=== PATIENT | female | born 1960 | race Caucasian/White ===

== ENCOUNTER 2022-09-29 07:10 | Inpatient (IN) | payer MEDICAID ==
[2022-09-29] MEDS ORDERED: ceFAZolin 2 GM in Sodium Chloride 0.9% 50 ML IV ONE (08:30)
[2022-09-29] MEDS ORDERED: Nozin Nasal Sanitizer NASBOTH SCH (08:30)
[2022-09-29] MEDS ORDERED: Lactated Ringers 1,000 ML IV SCH (08:30)
[2022-09-29] MEDS ORDERED: Nozin Nasal Sanitizer NASBOTH ONE (08:30)
[2022-09-29] MEDS ORDERED: Midazolam 1 MG/ML 2 ML SDV ONE (08:54)
[2022-09-29] MEDS ORDERED: Propofol 200 MG/20 ML SDV ONE ×2 (08:54→11:29)
[2022-09-29] MEDS ORDERED: fentaNYL 100 MCG/2 ML SDV ONE (08:54)
[2022-09-29] MEDS ORDERED: Bupivacaine 0.5% 30 ML SDV ONE (10:05)
[2022-09-29] MEDS ORDERED: Lactated Ringers 1,000 ML ONE (11:14)
[2022-09-29] MEDS ORDERED: Morphine 2 MG/ML SYRINGE IVPUSH PRN (12:19)
[2022-09-29] MEDS ORDERED: Ondansetron 4 MG Tab.DIS PO PRN (12:19)
[2022-09-29] MEDS ORDERED: Magnesium Hydroxide 400 MG/5 ML Susp 30 ML Cup PO PRN (12:19)
[2022-09-29] MEDS ORDERED: traMADol 50 MG Tab PO PRN (12:19)
[2022-09-29] MEDS ORDERED: Albuterol 0.083% 2.5 MG/3 ML Neb Soln INH PRN (12:28)
[2022-09-29] MEDS: oxyCODONE 5 MG Tab PO PRN ×2 (13:16→17:30)
[2022-09-29] MEDS: Sodium Chloride 0.9% 1,000 ML IV SCH (13:17)
[2022-09-29] MEDS ORDERED: Acetaminophen 325 MG Tab PO SCH (14:00)
[2022-09-29] MEDS: Ketorolac 30 MG/ML SDV IVPUSH SCH ×2 (14:34→20:05)
[2022-09-29] MEDS ORDERED: Sodium Chloride 0.9% 1,000 ML IV ONE ×2 (14:48→14:50)
[2022-09-29] MEDS: ceFAZolin 1 GM in Premix Bag 1 BAG IV SCH (17:23)
[2022-09-29] MEDS: Aspirin 325 MG Tab.EC PO SCH (20:05)
[2022-09-29] MEDS: Nozin Nasal Sanitizer NASBOTH SCH (20:06)
[2022-09-29] MEDS: Fluticasone NASAL Spray 16 GM Bottle NASBOTH SCH (20:07)
[2022-09-29] MEDS: Albuterol 90 MCG/6.7 GM Inhaler INH SCH (20:08)
[2022-09-29] MEDS: Formoterol/Mometasone 100-5 MCG 8.8 GM Inhaler IH SCH (20:08)
[2022-09-29] MEDS: Acetaminophen 325 MG Tab PO SCH (23:21)
[2022-09-30] MEDS: Sodium Chloride 0.9% 1,000 ML IV SCH (00:27)
[2022-09-30] MEDS: Ketorolac 30 MG/ML SDV IVPUSH SCH ×2 (01:18→08:01)
[2022-09-30] MEDS: ceFAZolin 1 GM in Premix Bag 1 BAG IV SCH (01:18)
[2022-09-30] MEDS: Acetaminophen 325 MG Tab PO SCH ×4 (04:30→21:18)
[2022-09-30] MEDS: oxyCODONE 5 MG Tab PO PRN ×5 (07:30→23:42)
[2022-09-30] MEDS: Albuterol 90 MCG/6.7 GM Inhaler INH SCH ×2 (07:59→21:16)
[2022-09-30] MEDS: Formoterol/Mometasone 100-5 MCG 8.8 GM Inhaler IH SCH ×2 (07:59→21:15)
[2022-09-30] MEDS: Nozin Nasal Sanitizer NASBOTH SCH ×2 (08:01→21:14)
[2022-09-30] MEDS: Fluticasone NASAL Spray 16 GM Bottle NASBOTH SCH ×2 (08:02→21:17)
[2022-09-30] MEDS: Pravastatin 20 MG Tab PO SCH (08:03)
[2022-09-30] MEDS: Docusate Sodium 100 MG Cap PO SCH (08:03)
[2022-09-30] MEDS: Aspirin 325 MG Tab.EC PO SCH ×2 (08:04→21:18)
[2022-09-30] MEDS: PARoxetine 20 MG Tab PO SCH (08:04)
[2022-10-01] MEDS: Acetaminophen 325 MG Tab PO SCH ×2 (04:06→10:35)
[2022-10-01] MEDS: oxyCODONE 5 MG Tab PO PRN ×2 (04:07→08:14)
[2022-10-01] MEDS: Formoterol/Mometasone 100-5 MCG 8.8 GM Inhaler IH SCH (07:29)
[2022-10-01] MEDS: Albuterol 90 MCG/6.7 GM Inhaler INH SCH (07:29)
[2022-10-01] MEDS: Pravastatin 20 MG Tab PO SCH (08:14)
[2022-10-01] MEDS: Fluticasone NASAL Spray 16 GM Bottle NASBOTH SCH (08:14)
[2022-10-01] MEDS: Aspirin 325 MG Tab.EC PO SCH (08:14)
[2022-10-01] MEDS: Nozin Nasal Sanitizer NASBOTH SCH (08:14)
[2022-10-01] MEDS: Docusate Sodium 100 MG Cap PO SCH (08:14)
[2022-10-01] MEDS: PARoxetine 20 MG Tab PO SCH (08:15)
== END 2022-10-01 12:00 | disposition home or self-care (01) | DRG 470 ==
LOC: JP.SDS 07:10 → JP.MS 12:19 → JP.SDS 09-30 11:30 → JP.MS 09-30 11:30
PROVIDERS: ADMIT Specialist; ATTEND Specialist
PROC: 0SRB01A Replacement of Left Hip Joint with Metal Synthetic Substitute, Uncemented, Open Approach (ICD-10-PCS; principal; 2022-09-30)
DX: M16.12 Unilateral primary osteoarthritis, left hip (principal); F41.9 Anxiety disorder, unspecified; E78.00 Pure hypercholesterolemia, unspecified; J45.909 Unspecified asthma, uncomplicated; R00.1 Bradycardia, unspecified; I95.9 Hypotension, unspecified; Z20.822 Contact with and (suspected) exposure to COVID-19; Z90.710 Acquired absence of both cervix and uterus; Z90.49 Acquired absence of other specified parts of digestive tract; Z91.09 Other allergy status, other than to drugs and biological substances; Z79.51 Long term (current) use of inhaled steroids; Z79.899 Other long term (current) drug therapy; Z86.16 Personal history of COVID-19
CPT/HCPCS: 36415; 72170; 72170-26; 80048; 85027; 93005; 93010; 94640; 97110-GP; 97116-GP; 97161-GP; 97165-GO; 97530-GP; 97535-GO; 97535-GP; A9270-GY; C1713; C1776; J0690; J1885; J2250; J2704; J3010; J3490; J7030; J7120; U0002

== ENCOUNTER 2024-08-15 07:12 | Observation (INO) | payer MEDICAID ==
[~2024-08-15 07:12] MED LIST: Bupivacaine 0.5% 50 ML MDV ONE
[2024-08-15] MEDS ORDERED: fentaNYL 100 MCG/2 ML SDV ONE ×2 (07:25→09:35)
[2024-08-15] MEDS ORDERED: Propofol 200 MG/20 ML SDV ONE ×2 (07:25→10:00)
[2024-08-15] MEDS ORDERED: Midazolam 1 MG/ML 2 ML SDV ONE ×2 (07:26→09:35)
[2024-08-15 07:35] LABS: HEMATOCRIT 44.8 % (34.3-46.0); HEMOGLOBIN 14.6 g/dL (11.2-15.5); MEAN CORPUSCULAR HEMOGLOBIN 31.3 pg (31.6-35.5); MEAN CORPUSCULAR HGB CONC 32.6 g/dL (31.6-35.5); MEAN CORPUSCULAR VOLUME 95.9 fL (81.4-99.0); RED BLOOD CELL COUNT 4.67 M/uL (3.77-5.24); WHITE BLOOD CELL COUNT,WBC 8.5 K/uL (3.2-11.0)
[2024-08-15] MEDS: Nozin Nasal Sanitizer NASBOTH SCH ×2 (07:52→20:58)
[2024-08-15 07:57] LABS: ALANINE AMINOTRANSFERASE,ALT 24 U/L (12-78); ALBUMIN 3.6 g/dL (3.4-5.0); ALKALINE PHOSPHATASE 126 U/L (46-116); ANION GAP 7.8 mmol/L (5.0-14.0); ASPARTATE AMNIOTRANSFERASE,AST 20 U/L (15-37); BILIRUBIN TOTAL 0.4 mg/dL (0.2-1.0); BLOOD UREA NITROGEN,BUN 14 mg/dL (7-18); CALCIUM 9.4 mg/dL (8.5-10.1); CARBON DIOXIDE,CO2 29 mmol/L (21-32); CHLORIDE,CL 106 mmol/L (100-108); CREATININE 0.9 mg/dL (0.6-1.0); EST CRCL DRUG DOSING (CG) 51.92 mL/min; ESTIMATED GFR 73 mL/min (>60); GLUCOSE RANDOM 124 mg/dL (74-106); POTASSIUM,K 3.8 mmol/L (3.6-5.2); PROTEIN TOTAL,TP 7.4 g/dL (6.4-8.2); SODIUM,NA 143 mmol/L (140-148)
[2024-08-15] MEDS: Lactated Ringers 1,000 ML IV SCH (08:12)
[2024-08-15] MEDS: ceFAZolin 2 GM in Premix Bag 1 BAG IV ONE (09:15)
[2024-08-15] MEDS: Tranexamic Acid 840 MG in Sodium Chloride 0.9% 50 ML IV ONE (09:45)
[2024-08-15] MEDS ORDERED: Lactated Ringers 1,000 ML ONE (10:40)
[2024-08-15] MEDS ORDERED: Ondansetron 4 MG/2 ML SDV IVPUSH PRN (11:15)
[2024-08-15] MEDS ORDERED: Docusate Sodium 100 MG Cap PO PRN (11:15)
[2024-08-15] MEDS ORDERED: ceFAZolin 2 GM in Sodium Chloride 0.9% 50 ML IV SCH (11:15)
[2024-08-15] MEDS ORDERED: Albuterol 0.083% 2.5 MG/3 ML Neb Soln INH PRN (11:16)
[2024-08-15] MEDS ORDERED: Fluticasone NASAL Spray 16 GM Bottle NAS PRN (11:16)
[2024-08-15] MEDS: Morphine 2 MG/ML SYRINGE IVPUSH ONE (11:32)
[2024-08-15] MEDS: Sodium Chloride 0.9% 1,000 ML IV SCH (12:40)
[2024-08-15] MEDS: oxyCODONE 5 MG Tab PO PRN (12:41)
[2024-08-15] MEDS: Ketorolac 15 MG/ML SDV IVPUSH PRN (14:56)
[2024-08-15] MEDS: Acetaminophen 325 MG Tab PO SCH (15:28)
[2024-08-15] MEDS: ceFAZolin 2 GM in Premix Bag 1 BAG IV SCH (16:46)
[2024-08-15] MEDS ORDERED: Albuterol 6.7 GM Inhaler INH SCH (21:00)
[2024-08-15] MEDS: ADVAIR INH SCH (21:00)
[2024-08-15] MEDS: Pravastatin 20 MG Tab PO SCH (21:00)
[2024-08-15] MEDS ORDERED: Non-Formulary Medication 1 Each (Fluticasone/Salmeterol [Advair 100-50] 14 PUFF/DISKUS Dis INH SCH (21:00)
[2024-08-15] MEDS: ALBUTEROL INH SCH (21:01)
[2024-08-16 05:30] LABS: HEMATOCRIT 35.3 % (34.3-46.0); HEMOGLOBIN 11.5 g/dL (11.2-15.5); MEAN CORPUSCULAR HEMOGLOBIN 31.4 pg (31.6-35.5); MEAN CORPUSCULAR HGB CONC 32.6 g/dL (31.6-35.5); MEAN CORPUSCULAR VOLUME 96.4 fL (81.4-99.0); RED BLOOD CELL COUNT 3.66 M/uL (3.77-5.24); WHITE BLOOD CELL COUNT,WBC 9.9 K/uL (3.2-11.0)
[2024-08-16] MEDS: Aspirin 325 MG Tab.EC PO SCH (08:21)
[2024-08-16] MEDS: PARoxetine 20 MG Tab PO SCH (08:23)
[2024-08-16] MEDS ORDERED: PAROXETINE 10 MG/5 ML PO SCH (09:00)
[2024-08-16] MEDS ORDERED: PRAVASTATIN SODIUM 10 MG PO SCH (09:00)
[2024-08-16] MEDS: ceFAZolin 2 GM Vial IM ONE (09:53)
[2024-08-16] MEDS ORDERED: Cyclobenzaprine 10 MG Tab PO PRN (11:30)
[2024-08-17] MEDS: oxyCODONE 5 MG Tab PO PRN (08:25)
== END 2024-08-17 13:15 | disposition home or self-care (01) ==
LOC: JP.SDS 07:12 → JP.MS 11:15 → JP.SDS 08-16 16:35 → JP.MS 08-16 16:35
PROVIDERS: ADMIT Specialist; ATTEND Physician Assistant
DX: M16.11 Unilateral primary osteoarthritis, right hip (principal); J44.9 Chronic obstructive pulmonary disease, unspecified; F17.200 Nicotine dependence, unspecified, uncomplicated
CPT/HCPCS: 01214; 27130; 36415; 72170; 80053; 85027; 94640; 97116; 97161; 97165; 97530; 97535; A9270; C1713; C1776; J0690; J1885; J2250; J2270; J2704; J3010; J3490; J7030; J7120; J0665